=== PATIENT | female | born 1975 | race African-American/Black ===

== ENCOUNTER 2018-02-28 23:15 | Emergency (ER) | payer SELFPAY ==
[~2018-02-28] VITALS: Ht 167.6 cm; Wt 79.4 kg
[2018-02-28 23:21] VITALS: Ht 167.6 cm; Wt 79.4 kg
[2018-03-01 02:51] VITALS: BP 99/62
== END 2018-03-01 02:51 | disposition short-term general hospital (02) ==
LOC: ED 23:15
DX: S82.841A Displaced bimalleolar fracture of right lower leg, initial encounter for closed fracture (principal); X58.XXXA Exposure to other specified factors, initial encounter; Y93.89 Activity, other specified; Y92.89 Other specified places as the place of occurrence of the external cause; Y99.8 Other external cause status
CPT/HCPCS: J2060; J2270; J2405; J3010; J3490; Q0092